=== PATIENT | female | born 1970 | race Caucasian/White ===

== ENCOUNTER 2023-06-27 13:01 | Inpatient (IN) ==
--- NOTE | 2023-06-27 13:32 | DR.URIAD ---
HPI Time Seen Time Seen by Provider: 06/27/23 13:31 PCP Primary Care Physician: Tone Cohn Chief Complaint Doctors Comments: Patient was diagnosed with Pneumonia and admitted to [facility] 1 week ago. Patient signed out AMA on wednesday06/25/2023. She lef t the hospital before she received antibiotic meds. Patient states that she had a fever to 102 last night. She presents with cough productive yellow-green sputum,sob,weakness,generalized bodyaches. Patient denies: neck pain,back pain,extremity pain,extremity edema,n,v Chief Complaint:: pt reports shortness of breath that has been ongoing x1 week but got worse last night. She states she was diagnosed with Pneumonia and admitted at [facility] last week but signed out AMA because she did not want to be there. reports n/v/d and also reports fever/chills. fever last night was 102. denies taking any medication. COVID-19 Coronavirus risk:travel/contact w/high risk person: No Has patient experienced Coronavirus symptoms: No Coronavirus symptoms experienced: Fever, Coughing and Shortness of Breath Source History Provided: Patient Mode of Arrival Mode of Arrival: Wheelchair Timing Onset of Chief Complaint: 06/27/23 PMH PMH Past Medical History: Yes Past Medical History: Anxiety, Asthma, COPD, Depression, Hypertension and Schizophrenia Past Medical History Comment: bipolar Past Surgical History: Yes Surgical History: Appendectomy, Hysterectomy and Ortho Surgery Family History History of Family Medical Conditions: Yes Family Medical History: Diabetes Mellitus, Cancer, [place], Coronary Artery Disease, Heart Failure, Sudden Cardiac and Hypertension Social History Alcohol Use: None Do you use any recreational Drugs:: No Lives With: Friend Lives Where: Home Travel Risk Coronavirus risk:travel/contact w/high risk person: No Has patient experienced Coronavirus symptoms: No Coronavirus symptoms experienced: Fever, Coughing and Shortness of Breath Infectious screening Have you traveled outside the country in the last 6 months?: No Isolation: Respiratory PE Vital Signs Vitals: Vital Signs Temperature 98.3 F Pulse Rate 82 Pulse Rate 89 Pulse Rate 90 Pulse Rate 90 Pulse Rate 95 Pulse Rate 96 Pulse Rate 89 Pulse Rate 99 Pulse Rate 98 Pulse Rate 103 Pulse Rate 98 Pulse Rate 91 Pulse Rate 101 Pulse Rate 101 Pulse Rate 102 Pulse Rate 101 Pulse Rate 104 Respiratory Rate 26 Blood Pressure 144/69 Blood Pressure 144/69 O2 Sat by Pulse Oximetry 91 O2 Sat by Pulse Oximetry 94 O2 Sat by Pulse Oximetry 95 O2 Sat by Pulse Oximetry 94 O2 Sat by Pulse Oximetry 93 O2 Sat by Pulse Oximetry 93 O2 Sat by Pulse Oximetry 91 O2 Sat by Pulse Oximetry 92 O2 Sat by Pulse Oximetry 92 O2 Sat by Pulse Oximetry 96 O2 Sat by Pulse Oximetry 91 O2 Sat by Pulse Oximetry 91 O2 Sat by Pulse Oximetry 90 O2 Sat by Pulse Oximetry 89 O2 Sat by Pulse Oximetry 92 O2 Sat by Pulse Oximetry 92 O2 Sat by Pulse Oximetry 91 General Limitations: No Limitations General Appearance: Alert and In No Apparent Distress Head Head Exam: Normal Inspection Eyes Eye exam: Normal Appearance ENT ENT Exam: Normal Exam External Ear Exam: Normal External Inspection TM/Canal Exam: Bilateral: Normal Nose Exam: Normal Nose Exam Nasal Speculum Exam: Bilateral: Normal Mouth Exam: Normal Inspection Throat Exam: Normal Inspection Neck Neck Exam: Normal Inspection Chest Chest Inspection: Normal Inspection Respiratory Respiratory Exam: Normal Lung Sounds Bilat Respiratory Exam: Bilateral: Wheezing (expiratory wheezing) Cardiovascular Cardiovascular Exam: Normal Rhythm and Tachycardia Abdominal Exam Abdominal Exam: Normal Inspection, Normal Bowel Sounds and Soft Extremeties Extremities Exam: Normal Inspection Back Back Exam: Normal Inspection Neurologic Neurological Exam: Alert and Oriented X3 Psychiatric Psychiatric Exam: Normal Affect and Normal Mood Skin Skin Exam: Warm, Dry, Intact and Normal Color MDM Differential Diagnosis Differential Diagnosis: Influenza A, Influenza B, Pneumonia and URI (Covid- 19,Rsv,COPD) COURSE Treatment Treatment: Patient was placed in a monitored room. IV access was initiated and labs and tests were ordered. Patient ABG on room air revealed a pH 7.5/PCO@ 36/P02 60/Hc03 33.8/02 SAT 94% RA. Patient was given Solu-Medrol 125 mg IV and a DuoNeb. Patient's labs and tests were reviewed: WBC 14.2, COVID 19 panel negative, lactic acid 2.2, CRP 107.2, BNP 85.7, CMP: Potassium 3.2, calcium 7.8, trop#1 5.5/EKG #1 no ischemic changes. Patient's chest x-ray revealed a left upper lobe infiltrate and possibly a right lower lobe infiltrate. Patient received Zosyn 3.375 mg IV (blood cultures have been collected earlier). Patient is currently on 2 L O2 NC.She received Kdur 40meq for K 3.2 in the ED. Discussed case with Dr. Noguera. Dr. Noguera has accepted patient to his service. Patient will be admitted to [facility] for further evaluation. Dr. Noguera states that the patient was admitted for 2 days at [facility]. She signed out AMA on the third day. One of the blood cultures collected at the time of admission was positive. Patient left before antibiotics were re-evaluated after the blood culture results were available. ROR Labs Reviewed Laboratory Results Reviewed?: Yes 06/27/23 14:31 06/27/23 14:31 Laboratory: WBC 14.2 X10^3/uL (3.6-10.0) H 06/27/23 14: RBC 4.31 X10^6/uL (3.5-5.4) 06/27/23 14: Hgb 12.2 g/dL (12.0-16.0) 06/27/23 14: Hct 37.4 % (36.0-47.0) 06/27/23 14: MCV 86.8 fL (80.0-100.0) 06/27/23 14: MCH 28.4 pg (27.0-34.0) 06/27/23 14: MCHC 32.7 g/dL (33.0-35.0) L 06/27/23 14: RDW 16.1 % (11.6-16.5) 06/27/23 14: Plt Count 342 X10^3/uL (150.0-450.0) 06/27/23 14: MPV 8.2 fL (7.4-11.0) 06/27/23 14: Neut % (Auto) 65.4 % (42.0-75.0) 06/27/23 14: Lymph % (Auto) 29.2 % (21.0-51.0) 06/27/23 14: [place] % (Auto) 4.5 % (0.0-13.0) 06/27/23 14: Eos % (Auto) 0.6 % (0.9-2.9) L 06/27/23 14: Baso % (Auto) 0.3 % (0.2-1.0) 06/27/23 14:31 Neut # (Auto) 9.3 x10^3/uL (2.2-4.8) H 06/27/23 14:31 Lymph # (Auto) 4.2 X10^3/uL (1.3-2.9) H 06/27/23 14:31 [place] # (Auto) 0.6 x10^3/uL (0.3-0.8) 06/27/23 14:31 Eos # (Auto) 0.1 x10^3/uL (0.0-0.2) 06/27/23 14:31 Baso # (Auto) 0.0 X10^3/uL (0.0-0.1) 06/27/23 14:31 Absolute Nucleated RBC 0.1 /100WBC 06/27/23 14:31 Sample Site Lrad 06/27/23 14:00 ABG pH 7.580 (7.35-7.45) H* 06/27/23 14:00 ABG pCO2 36.0 mmHg (35.0-45.0) 06/27/23 14:00 ABG pO2 60.0 mmHg (80.0-100.0) L 06/27/23 14:00 ABG HCO3 33.8 mmol/L (22-26) H* 06/27/23 14:00 ABG O2 Saturation 94.0 % (90-100) 06/27/23 14:00 ABG Base Excess 11.2 mmol/L (-2.0-2.0) H 06/27/23 14:00 Tad Test Pos 06/27/23 14:00 A-a Gradient 45.0 mmHg 06/27/23 14:00 FiO2 21.0 06/27/23 14:00 Blood Gas Comments Pt wander well elj 06/27/23 14:00 Sodium 138 mmol/L (136-145) 06/27/23 14:31 Corrected Sodium 138 mmol/L (136-145) 06/27/23 14:31 Potassium 3.2 mmol/L (3.5-5.1) L 06/27/23 14:31 Chloride 99 mmol/L (98-107) 06/27/23 14:31 Carbon Dioxide 31.4 mmol/L (21-32) 06/27/23 14:31 BUN 14 mg/dL (7-18) 06/27/23 14:31 Creatinine 0.85 mg/dL (0.55-1.02) 06/27/23 14:31 Est GFR (MDRD) Af Amer > 60 (>60) 06/27/23 14:31 Est GFR (MDRD) Non-Af > 60 (>60) 06/27/23 14:31 Glucose 114 mg/dL (65-99) H 06/27/23 14:31 Lactic Acid 2.2 mmol/L (0.4-2.0) H 06/27/23 14:31 Calcium 7.8 mg/dL (8.5-10.1) L 06/27/23 14:31 Corrected Calcium 9.6 mg/dL (8.5-10.1) 06/27/23 14:31 Total Bilirubin 0.50 mg/dL (0.2-1.0) 06/27/23 14:31 AST 41 Units/L (15-37) H 06/27/23 14:31 ALT 60 Units/L (12-78) 06/27/23 14:31 Alkaline Phosphatase 149 Units/L (46-116) H 06/27/23 14:31 Creatine Kinase 47 Units/L (26-192) 06/27/23 14:31 Troponin I High Sens 5.5 ng/L (4.0-60.0) 06/27/23 14:31 C-Reactive Protein 107.20 mg/L (0-3.0) H 06/27/23 14:31 B-Natriuretic Peptide 85.7 pg/mL (0-79) H 06/27/23 14:31 Total Protein 6.4 g/dL (6.4-8.2) 06/27/23 14:31 Albumin 1.7 g/dL (3.4-5.0) L 06/27/23 14:31 Globulin 4.7 g/dL (2.5-4.5) H 06/27/23 14:31 Albumin/Globulin Ratio 0.4 Ratio (1.1-2.1) L 06/27/23 14:31 SARS-CoV-2 (PCR) Negative (NEGATIVE) 06/27/23 14:11 Influenza Type A (PCR) Negative (NEGATIVE) 06/27/23 14:11 Influenza Type B (PCR) Negative (NEGATIVE) 06/27/23 14:11 RSV (PCR) Negative (NEGATIVE) 06/27/23 14:11 EKG Compared to prior EKG Dated: 06/27/23 Rate: 84 Roca: Normal Rhythm: NSR Opioid Opioid Risk Tool Age (Juaquin box if 16-45): No History of Preadolescent Sexual Abuse: No Total: 0 Total Score Risk Category: Low Risk Copyright: Adama MARIN predicting aberrant behaviors Discharge Plan Diagnosis Discharge Problem: Pneumonia, COPD exacerbation, Hypoxemia Discharge Plan Patient Disposition: ADMITTED INPATIENT Condition: Stable Prescriptions: No Action [facility] Concerns: Post Hospitalization: new medications and changes needed to prevent readmission or further decline. Pt educated and given instructions on all concerns. Plan of Treatment: Continue with present treatment and follow up plan. Pt is to keep follow up appointment as instructed and take medications as ordered. Orders to Discharge Patient Discharge Orders: Transfer (Routine); Ordered 06/27/23 Ordered By: Doreen Menendez Follow ups/Referrals Follow ups/Referrals: NFD,None [Primary Care Provider] - 3 days Instructions Stand Alone Forms: Post Hospital Follow Up Care
[2023-06-27] MEDS: SOLU-Medrol 125 MG VIAL IVP ONE (13:55)
[2023-06-27] MEDS: DUONEB 0.5 MG/3 MG (3 mL) NEB ONE (13:56)
[2023-06-27 14:04] LABS: ABG BASE EXCESS 11.2 mmol/L (-2.0-2.0)
[2023-06-27 14:05] LABS: ABG ALLEN TEST POS; ABG HCO3 33.8 mmol/L (22-26)
[2023-06-27 14:46] LABS: EOSINOPHILS # (AUTO) 0.1 x10^3/uL (0.0-0.2); HEMOGLOBIN 12.2 g/dL (12.0-16.0); MEAN PLATELET VOLUME 8.2 fL (7.4-11.0); MONOCYTES # (AUTO) 0.6 x10^3/uL (0.3-0.8)
[2023-06-27 14:51] LABS: BASOPHILS % (AUTO) 0.3 % (0.2-1.0); EOSINOPHILS % (AUTO) 0.6 % (0.9-2.9); HEMATOCRIT 37.4 % (36.0-47.0); LYMPHOCYTES # (AUTO) 4.2 X10^3/uL (1.3-2.9); LYMPHOCYTES % (AUTO) 29.2 % (21.0-51.0); MEAN CORPUSCULAR HEMOGLOBIN 28.4 pg (27.0-34.0); MEAN CORPUSCULAR HGB CONC 32.7 g/dL (33.0-35.0); MEAN CORPUSCULAR VOLUME 86.8 fL (80.0-100.0); MONOCYTES % (AUTO) 4.5 % (0.0-13.0); NEUTROPHILS # (AUTO) 9.3 x10^3/uL (2.2-4.8); NEUTROPHILS % (AUTO) 65.4 % (42.0-75.0); PLATELET COUNT 342 X10^3/uL (150.0-450.0); RED BLOOD COUNT 4.31 X10^6/uL (3.5-5.4); RED CELL DISTRIBUTION WIDTH 16.1 % (11.6-16.5); WHITE BLOOD COUNT 14.2 X10^3/uL (3.6-10.0)
[2023-06-27 15:03] LABS: ALANINE AMINOTRANSFERASE 60 Units/L (12-78); ALBUMIN 1.7 g/dL (3.4-5.0); ALKALINE PHOSPHATASE 149 Units/L (46-116); ASPARTATE AMINO TRANSFERASE 41 Units/L (15-37); BLOOD UREA NITROGEN 14 mg/dL (7-18); CALCIUM 7.8 mg/dL (8.5-10.1); CARBON DIOXIDE 31.4 mmol/L (21-32); CHLORIDE 99 mmol/L (98-107); COR CA(FOR HYPOALB) 9.6 mg/dL (8.5-10.1); COR NA(FOR HYPERGLY) 138 mmol/L (136-145); CREATININE 0.85 mg/dL (0.55-1.02); GLUCOSE 114 mg/dL (65-99); POTASSIUM 3.2 mmol/L (3.5-5.1); SODIUM 138 mmol/L (136-145); TOTAL PROTEIN 6.4 g/dL (6.4-8.2); eGFR NON BLACK RACES > 60 (>60)
--- NOTE | 2023-06-27 15:09 | RAD ---
EXAM: CHEST HISTORY: sob,fever,lk for infn,CHF; COMPARISON: June 01, 2018. TECHNIQUE: Frontal view of the chest was submitted for interpretation. FINDINGS: The cardiomediastinal silhouette is enlarged. Lungs show mild interstitial opacities favoring mild pulmonary edema. IMPRESSION: Cardiomegaly with likely mild pulmonary edema THIS IS AN ELECTRONICALLY VERIFIED FINAL REPORT 06/27/2023 3:06 PM - Electronically signed by Luke Bryant MD
[2023-06-27] MEDS ORDERED: NS 1,000 ML IV 1,000 ML ONE (15:37)
[2023-06-27] MEDS: NS 1,000 ML IV 1,000 ML IV SCH (15:44)
[2023-06-27] MEDS: ZOSYN VIAL 3.375 GRAMS 3.375 G in NS 100 ML IV 100 ML IV SCH (15:44)
[2023-06-27] MEDS: K-DUR TAB 20 MEQ PO ONE (15:45)
--- NOTE | 2023-06-27 16:54 | EKG ---
Test Reason : sob Blood Pressure : */* mmHG Vent. Rate : 84 BPM Atrial Rate : 84 BPM P-R Int : 126 ms QRS Dur : 94 ms QT Int : 392 ms P-R-T Axes : 51 66 34 degrees QTc Int : 463 ms Normal sinus rhythm Normal ECG No previous ECGs available Confirmed by Emre Hardin MD ([id number]) on 06/28/2023 7:36:39 AM Referred By: Confirmed By: Emre Hardin MD
[2023-06-27] MEDS ORDERED: ZOSYN VIAL 3.375 GRAMS 3.375 G in NS 100 ML IV 100 ML IV SCH (18:01)
[2023-06-27] MEDS ORDERED: NS 250 ML IV 25 ML IV PRN (18:01)
[2023-06-27] MEDS ORDERED: CONSULT PHARMACY - POTASSIUM & MAGNESIUM XX SCH (19:00)
[2023-06-27] MEDS: PULMICORT NEB TX 0.5 MG NEB SCH (20:57)
[2023-06-27] MEDS: DUONEB 0.5 MG/3 MG (3 mL) NEB SCH (20:57)
[2023-06-27] MEDS: MAG-OX TAB PO SCH (21:34)
[2023-06-27] MEDS: SOLU-Medrol 40 MG VIAL IVP SCH (21:34)
[2023-06-27] MEDS: RESTORIL CAP 15 MG PO PRN (21:34)
[2023-06-28] MEDS: MAG-OX TAB PO SCH ×2 (00:13→11:00)
[2023-06-28 06:31] LABS: BASOPHILS % (AUTO) 0.2 % (0.2-1.0); HEMOGLOBIN 11.2 g/dL (12.0-16.0); LYMPHOCYTES # (AUTO) 1.6 X10^3/uL (1.3-2.9); LYMPHOCYTES % (AUTO) 13.8 % (21.0-51.0); MEAN CORPUSCULAR HGB CONC 32.1 g/dL (33.0-35.0); MEAN CORPUSCULAR VOLUME 87.2 fL (80.0-100.0); MEAN PLATELET VOLUME 8.1 fL (7.4-11.0); MONOCYTES # (AUTO) 0.2 x10^3/uL (0.3-0.8); MONOCYTES % (AUTO) 1.9 % (0.0-13.0); NEUTROPHILS # (AUTO) 9.8 x10^3/uL (2.2-4.8); NEUTROPHILS % (AUTO) 84.1 % (42.0-75.0); PLATELET COUNT 330 X10^3/uL (150.0-450.0); RED BLOOD COUNT 4.01 X10^6/uL (3.5-5.4); RED CELL DISTRIBUTION WIDTH 15.6 % (11.6-16.5); WHITE BLOOD COUNT 11.6 X10^3/uL (3.6-10.0)
[2023-06-28 06:37] LABS: ALANINE AMINOTRANSFERASE 50 Units/L (12-78); ALBUMIN 1.6 g/dL (3.4-5.0); ALKALINE PHOSPHATASE 152 Units/L (46-116); ASPARTATE AMINO TRANSFERASE 27 Units/L (15-37); BLOOD UREA NITROGEN 14 mg/dL (7-18); CALCIUM 8.2 mg/dL (8.5-10.1); CARBON DIOXIDE 30.2 mmol/L (21-32); CHLORIDE 102 mmol/L (98-107); COR CA(FOR HYPOALB) 10.1 mg/dL (8.5-10.1); COR NA(FOR HYPERGLY) 142 mmol/L (136-145); CREATININE 0.77 mg/dL (0.55-1.02); GLUCOSE 272 mg/dL (65-99); POTASSIUM 3.9 mmol/L (3.5-5.1); SODIUM 138 mmol/L (136-145); TOTAL PROTEIN 6.2 g/dL (6.4-8.2); eGFR NON BLACK RACES > 60 (>60)
[2023-06-28] MEDS: DUONEB 0.5 MG/3 MG (3 mL) NEB ONE (07:23)
[2023-06-28] MEDS: LASIX IVP SCH (09:14)
[2023-06-28] MEDS: LOVENOX INJ 40 MG SYR SC SCH (09:14)
[2023-06-28] MEDS ORDERED: CONSULT PHARMACY - POTASSIUM & MAGNESIUM XX SCH (10:00)
--- NOTE | 2023-06-28 13:15 | RAD ---
EXAM: CHEST x-ray, 1 VIEW HISTORY: pulmonary edema, pneumonia - COMPARISON: X-ray 06/27/2023 FINDINGS: Patient is rotated to the left obscuring the left lung. There is probable persistent CHF. There may be mild pulmonary edema. No focal infiltrate is seen in the right lung. No pneumothorax or pleural effusion is seen. IMPRESSION: Left lung is obscured due to patient rotation. There is probable CHF and mild pulmonary edema. Froilan mmended continued x-ray follow-up. THIS IS AN ELECTRONICALLY VERIFIED FINAL REPORT 06/28/2023 1:12 PM - Electronically signed by Imtiaz Flores MD
[2023-06-28 14:52] LABS: CRYPTOSPORIDIUM PARVUM ANTIGEN NEGATIVE (NEGATIVE); GIARDIA LAMBLIA ANTIGEN NEGATIVE (NEGATIVE)
--- NOTE | 2023-06-28 17:57 | DR.H&P ---
H&P History & Physical for Day of: H&P Date: 06/27/23 Chief Complaint Chief Complaint: SOB Allergies Allergies Allergy/AdvReac Type Severity Reaction Status Date / Time No Known Drug Allergies Allergy Unknown Verified 06/28/23 03:06 History of Present Illness History of Present Illness: Pt is 52 WF, ER admission after presenting with co she was diagnosed with Pneumonia and admitted to [facility] 1 week ago. Patient signed out AMA on wednesday06/25/2023. She left the hospital before she received antibiotic meds. Patient states that she had a fever to 102 last night. She p resents with cough productive yellow-green sputum,sob,weakness,generalized bodyaches. Pt has PMH of obesity, COPD, HTN, OA and mental health disease. Pt admitted for treatment and evaluation of acute illness. Past Medical History Past Medical History: Anxiety, Asthma, COPD, Depression, Hypertension and Schizophrenia Past Surgical History Surgical History: Appendectomy, Hysterectomy and Ortho Surgery Family History Family Medical History: Diabetes Mellitus, Cancer, [place], Coronary Artery Disease, Heart Failure, Sudden Cardiac and Hypertension Social History Does patient currently use any type of tobacco product: No Have you used tobacco products in the last 12 months: No Type of Tobacco Use: None Alcohol Use: None Drug Use: None Medications Home Medications: Home Medications Medication Instructions Recorded Confirmed Type loperamide 2 mg capsule 2 mg PO Q6H PRN 06/28/23 06/28/23 History Labs 06/28/23 04:49 06/28/23 04:49 Labs: 06/28/23 13:50 Stool - Final 06/27/23 17:32 Sputum - Expectorated Sputum Sputum Culture - Preliminary 06/27/23 17:32 Sputum - Expectorated Sputum - Final Laboratory WBC 11.6 X10^3/uL (3.6-10.0) H 06/28/23 04:49 RBC 4.01 X10^6/uL (3.5-5.4) 06/28/23 04:49 Hgb 11.2 g/dL (12.0-16.0) L 06/28/23 04:49 Hct 35.0 % (36.0-47.0) L 06/28/23 04:49 MCV 87.2 fL (80.0-100.0) 06/28/23 04:49 MCH 28.0 pg (27.0-34.0) 06/28/23 04:49 MCHC 32.1 g/dL (33.0-35.0) L 06/28/23 04:49 RDW 15.6 % (11.6-16.5) 06/28/23 04:49 Plt Count 330 X10^3/uL (150.0-450.0) 06/28/23 04:49 MPV 8.1 fL (7.4-11.0) 06/28/23 04:49 Neut % (Auto) 84.1 % (42.0-75.0) H 06/28/23 04:49 Lymph % (Auto) 13.8 % (21.0-51.0) L 06/28/23 04:49 [place] % (Auto) 1.9 % (0.0-13.0) 06/28/23 04:49 Eos % (Auto) 0.0 % (0.9-2.9) L 06/28/23 04:49 Baso % (Auto) 0.2 % (0.2-1.0) 06/28/23 04:49 Neut # (Auto) 9.8 x10^3/uL (2.2-4.8) H 06/28/23 04:49 Lymph # (Auto) 1.6 X10^3/uL (1.3-2.9) 06/28/23 04:49 [place] # (Auto) 0.2 x10^3/uL (0.3-0.8) L 06/28/23 04:49 Eos # (Auto) 0.0 x10^3/uL (0.0-0.2) 06/28/23 04:49 Baso # (Auto) 0.0 X10^3/uL (0.0-0.1) 06/28/23 04:49 Absolute Nucleated RBC 0.1 /100WBC 06/28/23 04:49 Sample Site Lrad 06/27/23 14:00 ABG pH 7.580 (7.35-7.45) H* 06/27/23 14:00 ABG pCO2 36.0 mmHg (35.0-45.0) 06/27/23 14:00 ABG pO2 60.0 mmHg (80.0-100.0) L 06/27/23 14:00 ABG HCO3 33.8 mmol/L (22-26) H* 06/27/23 14:00 ABG O2 Saturation 94.0 % (90-100) 06/27/23 14:00 ABG Base Excess 11.2 mmol/L (-2.0-2.0) H 06/27/23 14:00 Tad Test Pos 06/27/23 14:00 A-a Gradient 45.0 mmHg 06/27/23 14:00 FiO2 21.0 06/27/23 14:00 Blood Gas Comments Pt wander well elj 06/27/23 14:00 Sodium 138 mmol/L (136-145) 06/28/23 04:49 Corrected Sodium 142 mmol/L (136-145) 06/28/23 04:49 Potassium 3.9 mmol/L (3.5-5.1) 06/28/23 04:49 Chloride 102 mmol/L (98-107) 06/28/23 04:49 Carbon Dioxide 30.2 mmol/L (21-32) 06/28/23 04:49 BUN 14 mg/dL (7-18) 06/28/23 04:49 Creatinine 0.77 mg/dL (0.55-1.02) 06/28/23 04:49 Est GFR (MDRD) Af Amer > 60 (>60) 06/28/23 04:49 Est GFR (MDRD) Non-Af > 60 (>60) 06/28/23 04:49 Glucose 272 mg/dL (65-99) H 06/28/23 04:49 Lactic Acid 2.6 mmol/L (0.4-2.0) H 06/28/23 09:59 Calcium 8.2 mg/dL (8.5-10.1) L 06/28/23 04:49 Corrected Calcium 10.1 mg/dL (8.5-10.1) 06/28/23 04:49 Magnesium 1.7 mg/dL (2.0-2.9) L 06/28/23 04:49 Total Bilirubin 0.30 mg/dL (0.2-1.0) 06/28/23 04:49 AST 27 Units/L (15-37) 06/28/23 04:49 ALT 50 Units/L (12-78) 06/28/23 04:49 Alkaline Phosphatase 152 Units/L (46-116) H 06/28/23 04:49 Creatine Kinase 41 Units/L (26-192) 06/27/23 17:23 Troponin I High Sens < 4.0 ng/L (4.0-60.0) L 06/27/23 23:27 C-Reactive Protein 107.20 mg/L (0-3.0) H 06/27/23 14:31 B-Natriuretic Peptide 85.7 pg/mL (0-79) H 06/27/23 14:31 Total Protein 6.2 g/dL (6.4-8.2) L 06/28/23 04:49 Albumin 1.6 g/dL (3.4-5.0) L 06/28/23 04:49 Globulin 4.6 g/dL (2.5-4.5) H 06/28/23 04:49 Albumin/Globulin Ratio 0.3 Ratio (1.1-2.1) L 06/28/23 04:49 Stl Occult Blood (IFOB) Positive (NEGATIVE) A 06/28/23 13:50 Stl C. diff Tox B Gene Negative (NEGATIVE) 06/28/23 13:50 Stl C. diff [id number] Presumptive negative (NEGATIVE) 06/28/23 13:50 Stool H. pylori Ag Positive (NEGATIVE) A 06/28/23 13:50 SARS-CoV-2 (PCR) Negative (NEGATIVE) 06/27/23 14:11 Cryptosporid parvum Ag Negative (NEGATIVE) 06/28/23 13:50 Giardia lamblia Ag Negative (NEGATIVE) 06/28/23 13:50 Influenza Type A (PCR) Negative (NEGATIVE) 06/27/23 14:11 Influenza Type B (PCR) Negative (NEGATIVE) 06/27/23 14:11 RSV (PCR) Negative (NEGATIVE) 06/27/23 14:11 Review of Systems Constitutional: Fever and Weakness Eyes: No Symptoms Reported ENT: Nose Discharge Respiratory: Shortness of Breath Cardiovascular: Edema Gastrointestinal: Nausea Genitourinary: No Symptoms Reported Musculoskeletal: Back Pain Skin: No Symptoms Reported Neurological: No Symptoms Reported Physical Exam Vital Signs: Vital Signs Temperature 98.6 F Temperature 98.5 F Pulse Rate 79 Pulse Rate 83 Pulse Rate 83 Pulse Rate 85 Pulse Rate 84 Pulse Rate 90 Pulse Rate 94 Pulse Rate 88 Pulse Rate 94 Pulse Rate 92 Pulse Rate 96 Pulse Rate 95 Pulse Rate 93 Pulse Rate 88 Pulse Rate 94 Pulse Rate 92 Pulse Rate 84 Pulse Rate 92 Pulse Rate 88 Pulse Rate 89 Pulse Rate 92 Pulse Rate 91 Pulse Rate 96 Pulse Rate 89 Pulse Rate 92 Pulse Rate 89 Pulse Rate 92 Pulse Rate 93 Pulse Rate 99 Pulse Rate 92 Pulse Rate 86 Pulse Rate 89 Pulse Rate 93 Respiratory Rate 30 Respiratory Rate 31 Respiratory Rate 42 Respiratory Rate 42 Respiratory Rate 43 Respiratory Rate 52 Respiratory Rate 40 Respiratory Rate 35 Respiratory Rate 37 Respiratory Rate 46 Respiratory Rate 50 Respiratory Rate 30 Respiratory Rate 38 Respiratory Rate 49 Respiratory Rate 54 Respiratory Rate 59 Respiratory Rate 35 Respiratory Rate 60 Respiratory Rate 47 Respiratory Rate 46 Respiratory Rate 44 Respiratory Rate 44 Respiratory Rate 56 Respiratory Rate 42 Respiratory Rate 48 Respiratory Rate 54 Respiratory Rate 49 Respiratory Rate 48 Respiratory Rate 66 Respiratory Rate 33 Respiratory Rate 37 Respiratory Rate 31 Blood Pressure 162/69 Blood Pressure 164/75 Blood Pressure 144/72 Blood Pressure 141/69 Blood Pressure 141/69 Blood Pressure 134/61 Blood Pressure 131/87 Blood Pressure 106/68 Blood Pressure 106/68 O2 Sat by Pulse Oximetry 96 O2 Sat by Pulse Oximetry 93 O2 Sat by Pulse Oximetry 95 O2 Sat by Pulse Oximetry 94 O2 Sat by Pulse Oximetry 96 O2 Sat by Pulse Oximetry 94 O2 Sat by Pulse Oximetry 94 O2 Sat by Pulse Oximetry 97 O2 Sat by Pulse Oximetry 95 O2 Sat by Pulse Oximetry 94 O2 Sat by Pulse Oximetry 95 O2 Sat by Pulse Oximetry 92 O2 Sat by Pulse Oximetry 93 O2 Sat by Pulse Oximetry 82 O2 Sat by Pulse Oximetry 100 O2 Sat by Pulse Oximetry 91 O2 Sat by Pulse Oximetry 94 O2 Sat by Pulse Oximetry 93 O2 Sat by Pulse Oximetry 94 O2 Sat by Pulse Oximetry 95 O2 Sat by Pulse Oximetry 94 O2 Sat by Pulse Oximetry 94 O2 Sat by Pulse Oximetry 93 O2 Sat by Pulse Oximetry 94 O2 Sat by Pulse Oximetry 94 O2 Sat by Pulse Oximetry 93 O2 Sat by Pulse Oximetry 84 O2 Sat by Pulse Oximetry 93 O2 Sat by Pulse Oximetry 93 O2 Sat by Pulse Oximetry 93 O2 Sat by Pulse Oximetry 100 O2 Sat by Pulse Oximetry 95 O2 Sat by Pulse Oximetry 92 O2 Sat by Pulse Oximetry 95 Oriented: Normal Eyes: Normal Ear: Normal Nose: Normal Throat: Dry Respiratory: Diminished Throughout and Wheezes Throughout Cardiovascular: Normal and Edema Auscultation: Bowel Sounds: Normal Palpation: Normal Tenderness: Normal Skin: Decreased [place]urgur Psychiatric: Normal Mood Description: Calm Speech Pattern: Clear and Appropriate Assessment/Plan (1) COPD exacerbation: Narrative Support Text: ADMIT IV HYDRATION, ABG AND CHEST XRAY ON ADMISSION IV ATBX, RESP THERAPY VERIFY HOME MEDICATIONS BP CONTROL Status: Acute (2) Hypoxemia: Status: Acute (3) RLL pneumonia: Qualifiers: Pneumonia type: due to unspecified organism Qualified Code(s): J18.1 - Lobar pneumonia, unspecified organism Status: Acute (4) History of bipolar disorder: Status: None (5) Hypertension: Status: Acute
[2023-06-28] MEDS: IMODIUM CAP 2 MG PO PRN (18:29)
[2023-06-28] MEDS: BIAXIN TAB 500 MG PO SCH (21:07)
[2023-06-28] MEDS: ROBITUSSIN DM PO PRN (21:59)
[2023-06-29 05:24] LABS: BASOPHILS % (AUTO) 0.3 % (0.2-1.0); EOSINOPHILS % (AUTO) 0.1 % (0.9-2.9); HEMATOCRIT 35.1 % (36.0-47.0); HEMOGLOBIN 11.3 g/dL (12.0-16.0); LYMPHOCYTES # (AUTO) 0.8 X10^3/uL (1.3-2.9); LYMPHOCYTES % (AUTO) 5.9 % (21.0-51.0); MEAN CORPUSCULAR HEMOGLOBIN 28.5 pg (27.0-34.0); MEAN CORPUSCULAR HGB CONC 32.3 g/dL (33.0-35.0); MEAN CORPUSCULAR VOLUME 88.2 fL (80.0-100.0); MEAN PLATELET VOLUME 8.2 fL (7.4-11.0); MONOCYTES # (AUTO) 0.6 x10^3/uL (0.3-0.8); MONOCYTES % (AUTO) 4.5 % (0.0-13.0); NEUTROPHILS # (AUTO) 11.9 x10^3/uL (2.2-4.8); NEUTROPHILS % (AUTO) 89.2 % (42.0-75.0); PLATELET COUNT 407 X10^3/uL (150.0-450.0); RED BLOOD COUNT 3.98 X10^6/uL (3.5-5.4); RED CELL DISTRIBUTION WIDTH 16.3 % (11.6-16.5); WHITE BLOOD COUNT 13.3 X10^3/uL (3.6-10.0)
[2023-06-29 05:39] LABS: ALANINE AMINOTRANSFERASE 80 Units/L (12-78); ALBUMIN 1.8 g/dL (3.4-5.0); ALKALINE PHOSPHATASE 183 Units/L (46-116); ASPARTATE AMINO TRANSFERASE 39 Units/L (15-37); BLOOD UREA NITROGEN 18 mg/dL (7-18); CARBON DIOXIDE 31.6 mmol/L (21-32); CHLORIDE 104 mmol/L (98-107); COR CA(FOR HYPOALB) 9.8 mg/dL (8.5-10.1); COR NA(FOR HYPERGLY) 145 mmol/L (136-145); CREATININE 0.93 mg/dL (0.55-1.02); GLUCOSE 254 mg/dL (65-99); MAGNESIUM 1.8 mg/dL (2.0-2.9); SODIUM 141 mmol/L (136-145); TOTAL PROTEIN 6.3 g/dL (6.4-8.2); eGFR NON BLACK RACES > 60 (>60)
[2023-06-29] MEDS: MAG-OX TAB PO SCH (08:49)
[2023-06-29] MEDS: PROTONIX TAB 40 MG PO SCH ×2 (08:49→21:01)
[2023-06-29 10:26] LABS: BILIRUBIN,URINE NEGATIVE (NEGATIVE); BLOOD/HEMOGLOBIN,URINE NEGATIVE (NEGATIVE); GLUCOSE, URINE NEGATIVE (NEGATIVE); KETONES,URINE NEGATIVE (NEGATIVE); LEUKOCYTE ESTERASE ,URINE NEGATIVE (NEGATIVE); NITRITES,URINE NEGATIVE (NEGATIVE); PH,URINE 6.5 (5.0 - 8.0); PROTEIN,URINE NEGATIVE (NEGATIVE); UROBILINOGEN,URINE NORMAL (NORMAL)
[2023-06-29 10:32] LABS: APPEARANCE,URINE CLEAR (CLEAR); COLOR,URINE STRAW (YELLOW)
[2023-06-29] MEDS: VALTREX PO SCH (11:11)
[2023-06-29] MEDS: CYMBALTA PO SCH (11:11)
[2023-06-29] MEDS: ALPRAZOLAM ODT PO PRN (11:40)
[2023-06-29] MEDS: CONSULT PHARMACY - POTASSIUM & MAGNESIUM XX SCH (11:51)
--- NOTE | 2023-06-29 12:58 | RAD ---
EXAM:CHEST, 1 VIEWHISTORY:PNEUMONIA, COPD;COMPARISON:June 26 and June 27TECHNIQUE:Portable chest radiographFINDINGS:Stable size of the cardiac silhouette which may be magnified by portable acquisition. There are no findings of overt pulmonary edema. The patient remains slightly rotated. There may be some volume loss within the left hemithorax and there is persistent nonspecific streaky opacification within the left upper lobe while the right lung remains predominantly clear. No pleural fluid collections are identified. There is no radiographic evidence of free air or pneumothorax.IMPRESSION:Suspected volume loss of the left hemithorax and streaky subsegmental airspace opacities of the left upper lobe, which remain nonspecific. Differential considerations may include atelectasis or parenchymal scarring giving volume loss, without or with superimposed pneumonia, depending on initial clinical presentation.Continued radiographic follow-up is recommended. CT may be utilized for more detailed characterization if clinically warranted given lack of prior comparisonsTHIS IS AN ELECTRONICALLY VERIFIED FINAL REPORT06/29/2023 12:55 PM - Electronically signed by Last Levin MD
[2023-06-29] MEDS: NEURONTIN CAP 400 MG PO SCH (13:58)
--- NOTE | 2023-06-29 14:28 | EKG ---
Test Reason : pt complains of chest pain Blood Pressure : */* mmHG Vent. Rate : 95 BPM Atrial Rate : 190 BPM P-R Int : * ms QRS Dur : 94 ms QT Int : 362 ms P-R-T Axes : 83 74 43 degrees QTc Int : 454 ms Normal sinus rhythm normal ekg When compared with ECG of 27-JUN-2023 16:51, No significant change was found Confirmed by Emre Hardin MD ([id number]) on 06/30/2023 7:42:57 AM Referred By: Confirmed By: Emre Hardin MD
[2023-06-29] MEDS: MAALOX or MYLANTA PO PRN (14:32)
[2023-06-29 15:39] VITALS: BMI 48.4
--- NOTE | 2023-06-29 15:55 | EKG ---
Test Reason : repeat EKG Blood Pressure : */* mmHG Vent. Rate : 89 BPM Atrial Rate : 89 BPM P-R Int : 124 ms QRS Dur : 84 ms QT Int : 376 ms P-R-T Axes : 69 44 37 degrees QTc Int : 457 ms Normal sinus rhythm Normal ECG When compared with ECG of 29-JUN-2023 14:04, (Unconfirmed) No significant change was found Confirmed by Emre Hardin MD ([id number]) on 06/30/2023 7:42:00 AM Referred By: Confirmed By: Emre Hardin MD
[2023-06-30 05:02] LABS: BASOPHILS # (AUTO) 0.1 X10^3/uL (0.0-0.1); BASOPHILS % (AUTO) 1.6 % (0.2-1.0); HEMATOCRIT 34.3 % (36.0-47.0); HEMOGLOBIN 10.9 g/dL (12.0-16.0); LYMPHOCYTES # (AUTO) 0.8 X10^3/uL (1.3-2.9); MEAN CORPUSCULAR HEMOGLOBIN 28.2 pg (27.0-34.0); MEAN CORPUSCULAR HGB CONC 31.9 g/dL (33.0-35.0); MEAN CORPUSCULAR VOLUME 88.4 fL (80.0-100.0); MEAN PLATELET VOLUME 8.3 fL (7.4-11.0); MONOCYTES # (AUTO) 0.2 x10^3/uL (0.3-0.8); MONOCYTES % (AUTO) 3.1 % (0.0-13.0); NEUTROPHILS # (AUTO) 5.6 x10^3/uL (2.2-4.8); NEUTROPHILS % (AUTO) 83.3 % (42.0-75.0); PLATELET COUNT 380 X10^3/uL (150.0-450.0); RED BLOOD COUNT 3.88 X10^6/uL (3.5-5.4); RED CELL DISTRIBUTION WIDTH 16.3 % (11.6-16.5); WHITE BLOOD COUNT 6.8 X10^3/uL (3.6-10.0)
[2023-06-30 05:20] LABS: ALANINE AMINOTRANSFERASE 78 Units/L (12-78); ALBUMIN 1.7 g/dL (3.4-5.0); ALKALINE PHOSPHATASE 155 Units/L (46-116); ASPARTATE AMINO TRANSFERASE 29 Units/L (15-37); BLOOD UREA NITROGEN 18 mg/dL (7-18); CALCIUM 7.6 mg/dL (8.5-10.1); CARBON DIOXIDE 31.9 mmol/L (21-32); CHLORIDE 103 mmol/L (98-107); COR CA(FOR HYPOALB) 9.4 mg/dL (8.5-10.1); COR NA(FOR HYPERGLY) 144 mmol/L (136-145); CREATININE 0.79 mg/dL (0.55-1.02); GLUCOSE 359 mg/dL (65-99); SODIUM 138 mmol/L (136-145); TOTAL PROTEIN 5.8 g/dL (6.4-8.2); eGFR NON BLACK RACES > 60 (>60)
[2023-06-30] MEDS ORDERED: OMNIPAQUE 350 mg/mL 100 mL BTL 100 ML ONE (08:51)
[2023-06-30] MEDS: NovoLIN R (or HumuLIN R) SUBCUT PRN (14:27)
[2023-06-30] MEDS: NS 250 ML IV 25 ML IV PRN (14:28)
[2023-06-30] MEDS: BACTRIM DS TAB PO SCH (14:41)
--- NOTE | 2023-06-30 16:41 | CT ---
EXAM:CT chest without IV contrastHISTORY:abnormal chest xray, pneumonia -COMPARISON:X-ray 06/29/2023TECHNIQUE:Multiple axial images of the chest were obtained from the thoracic inlet to the upper abdomenfollowing the administration of IV contrast. Sagittal and coronal reformations are performed. Dose reduction techniques including Automated Exposure Control (AEC) and adjustment of mA and kV were utilized.FINDINGS:There is alveolar, interstitial, and ground-glass infiltrate in the left upper lobe. There is a degree of volume loss associated with this infiltrate. No central obstructing mass is identified. Atelectasis and pneumonia are the most likely etiology for the appearance. The atelectasis could be from mucous plugging. Recommend continued x-ray follow to document resolution.Trace left pleural effusion. Right lung appears clear. There is likely mild CHF. Small reactive appearing mediastinal lymph nodes are seen. Thoracic aorta is normal in size. A PE study is not performed but no large proximal pulmonary embolus is seen.IMPRESSION:Probable combination of left upper lobe pneumonia and atelectasis is present. Recommend continued x-ray follow to document resolution.There is probable mild CHF.THIS IS AN ELECTRONICALLY VERIFIED FINAL REPORT06/30/2023 4:38 PM - Electronically signed by Imtiaz Flores MD
[2023-06-30] MEDS: CARAFATE ORAL SUSP PO SCH (17:08)
[2023-07-01 05:26] LABS: BASOPHILS % (AUTO) 0.1 % (0.2-1.0); HEMOGLOBIN 10.9 g/dL (12.0-16.0); LYMPHOCYTES # (AUTO) 0.7 X10^3/uL (1.3-2.9); LYMPHOCYTES % (AUTO) 10.9 % (21.0-51.0); MEAN CORPUSCULAR HEMOGLOBIN 28.3 pg (27.0-34.0); MEAN CORPUSCULAR HGB CONC 32.1 g/dL (33.0-35.0); MEAN CORPUSCULAR VOLUME 88.1 fL (80.0-100.0); MEAN PLATELET VOLUME 8.2 fL (7.4-11.0); MONOCYTES # (AUTO) 0.2 x10^3/uL (0.3-0.8); MONOCYTES % (AUTO) 3.6 % (0.0-13.0); NEUTROPHILS # (AUTO) 5.7 x10^3/uL (2.2-4.8); NEUTROPHILS % (AUTO) 85.4 % (42.0-75.0); PLATELET COUNT 411 X10^3/uL (150.0-450.0); RED BLOOD COUNT 3.86 X10^6/uL (3.5-5.4); RED CELL DISTRIBUTION WIDTH 16.3 % (11.6-16.5); WHITE BLOOD COUNT 6.6 X10^3/uL (3.6-10.0)
[2023-07-01 05:47] LABS: ALANINE AMINOTRANSFERASE 107 Units/L (12-78); ALBUMIN 1.8 g/dL (3.4-5.0); ALKALINE PHOSPHATASE 175 Units/L (46-116); ASPARTATE AMINO TRANSFERASE 36 Units/L (15-37); BLOOD UREA NITROGEN 20 mg/dL (7-18); CALCIUM 7.7 mg/dL (8.5-10.1); CARBON DIOXIDE 29.8 mmol/L (21-32); CHLORIDE 103 mmol/L (98-107); COR CA(FOR HYPOALB) 9.5 mg/dL (8.5-10.1); COR NA(FOR HYPERGLY) 143 mmol/L (136-145); CREATININE 0.84 mg/dL (0.55-1.02); GLUCOSE 332 mg/dL (65-99); POTASSIUM 4.9 mmol/L (3.5-5.1); SODIUM 137 mmol/L (136-145); TOTAL PROTEIN 5.7 g/dL (6.4-8.2); eGFR NON BLACK RACES > 60 (>60)
[2023-07-01] MEDS: LASIX IVP SCH (09:35)
[2023-07-01 10:54] VITALS: BP 166/86; PULSE 85; RESP 22; TEMP 98.5; O2SAT 93
== END 2023-07-01 12:48 | disposition home or self-care (01) | DRG 194 ==
LOC: ICU 13:01 → ER 13:01 → ICU 17:44
PROVIDERS: ADMIT Internal Medicine; ATTEND Internal Medicine
DX: J44.1 Chronic obstructive pulmonary disease with (acute) exacerbation; R07.89 Other chest pain; E87.6 Hypokalemia; B96.81 Helicobacter pylori [H. pylori] as the cause of diseases classified elsewhere; R79.82 Elevated C-reactive protein (CRP); R09.02 Hypoxemia; A04.8 Other specified bacterial intestinal infections; R06.02 Shortness of breath; K92.1 Melena; I10 Essential (primary) hypertension; J18.8 Other pneumonia, unspecified organism; Z20.822 Contact with and (suspected) exposure to COVID-19; E83.42 Hypomagnesemia; Z86.59 Personal history of other mental and behavioral disorders; F41.8 Other specified anxiety disorders; Z59.86 Financial insecurity